=== PATIENT | female | born 1935 | race African-American/Black ===

== ENCOUNTER 2019-06-29 16:45 | Emergency (ER) | payer MEDICARE ==
[~2019-06-29] VITALS: Ht 177.8 cm; Wt 50.0 kg
[~2019-06-29 16:45] MED LIST: AMLO5TAB4 PO; LISI10TA5 PO
[2019-06-29] MEDS ORDERED: HYDROCODONE/ACETAMINOPHEN 5/325MG TABLET PO ONE (20:00)
[2019-06-29 21:01] LABS: BASOPHILS % 0.7 % (0.0-2.0); HEMATOCRIT. 26.7 % (36.0-48.0); HEMOGLOBIN. 9.1 g/dL (12.0-16.0); LYMPHOCYTES % 23.8 % (20.0-50.0); MEAN CORPUSCULAR VOLUME 102.4 fL (81.0-99.0); MEAN PLATELET VOLUME 6.2 fl (7.4-10.4); MONOCYTES % 6.9 % (2.0-8.0); NEUTROPHILS % 68.6 % (40.0-76.0); PLATELET 181 x1000/uL (130-400); RED BLOOD CELL COUNT 2.61 mill/uL (4.2-5.4)
[2019-06-29 21:02] LABS: CHLORIDE 105 mEq/L (98-107)
[2019-06-29 23:33] VITALS: BP 127/43
== END 2019-06-29 23:34 | disposition home or self-care (01) ==
LOC: ER 16:45
DX: S22.42XA Multiple fractures of ribs, left side, initial encounter for closed fracture (principal); M54.2 Cervicalgia; M19.90 Unspecified osteoarthritis, unspecified site; I12.0 Hypertensive chronic kidney disease with stage 5 chronic kidney disease or end stage renal disease; N18.6 End stage renal disease; Z99.2 Dependence on renal dialysis; Z90.89 Acquired absence of other organs; Z98.890 Other specified postprocedural states; Z88.8 Allergy status to other drugs, medicaments and biological substances; W07.XXXA Fall from chair, initial encounter; Y93.89 Activity, other specified; Y92.89 Other specified places as the place of occurrence of the external cause; Y99.8 Other external cause status
CPT/HCPCS: 36415; 71250; 84484; 93005; 99284

== ENCOUNTER 2020-02-02 23:56 | Emergency (ER) | payer BC, MEDICARE ==
[~2020-02-02] VITALS: Ht 152.4 cm; Wt 45.0 kg
[2020-02-03] MEDS ORDERED: ONDANSETRON HCL 4MG/2ML INJ IV STA (01:32)
[2020-02-03 02:22] LABS: BASOPHILS % 0.3 % (0.0-2.0); EOSINOPHILS % 0.9 % (0.0-5.0); HEMATOCRIT. 26.4 % (36.0-48.0); HEMOGLOBIN. 9.3 g/dL (12.0-16.0); LYMPHOCYTES % 13.9 % (20.0-50.0); MEAN CORPUSCULAR HEMOGLOBIN 36.3 pg (28.0-32.0); MEAN CORPUSCULAR VOLUME 102.6 fL (81.0-99.0); MEAN PLATELET VOLUME 6.3 fl (7.4-10.4); MONOCYTES % 5.8 % (2.0-8.0); NEUTROPHILS % 79.1 % (40.0-76.0); PLATELET 393 x1000/uL (130-400); RED BLOOD CELL COUNT 2.57 mill/uL (4.2-5.4); RED CELL DISTRIBUTION WIDTH 13.9 % (11.6-14.6)
[2020-02-03 02:29] LABS: CHLORIDE 101 mEq/L (98-107)
[2020-02-03 03:30] VITALS: BP 165/62
== END 2020-02-03 03:34 | disposition left against medical advice (07) ==
LOC: ER 23:56 → EDBEDREQTM 02-03 02:36 → EDBEDREQ 02-03 02:36 → EDBEDREQSVC 02-03 02:36 → ER 02-03 03:34 → CANBEDREQ 02-03 07:30
DX: R06.02 Shortness of breath (principal); I10 Essential (primary) hypertension; Z88.8 Allergy status to other drugs, medicaments and biological substances
CPT/HCPCS: 36415; 71045; 80053; 83880; 84484; 85025; 93005; 99285